=== PATIENT | male | born 1985 | race Hispanic/Latino ===

== ENCOUNTER 2024-07-28 02:37 | Emergency (ER) | payer SELFPAY ==
[~2024-07-28] VITALS: Ht 167.6 cm; Wt 88.0 kg
[2024-07-28] MEDS: DIPH,PERTUSS(ACELL),TET VAC/PF 0.5 ML VIAL IM ONE (03:27)
[2024-07-28] MEDS: LIDOCAINE HCL 1% 20 ML VIAL INJ SCH (03:27)
[2024-07-28 03:39] VITALS: BP 126/79; PULSE 83; RESP 18; TEMP 98.5; O2SAT 98
[2024-07-28] MEDS: BACITRACIN 1 EACH PACKET TP ONE (04:24)
== END 2024-07-28 04:31 | disposition home or self-care (01) ==
LOC: EDBD 02:37 → EDH 02:37
DX: S61.217A Laceration without foreign body of left little finger without damage to nail, initial encounter (principal); W25.XXXA Contact with sharp glass, initial encounter; Y93.89 Activity, other specified; Y92.89 Other specified places as the place of occurrence of the external cause; Y99.8 Other external cause status
CPT/HCPCS: 12001; 90471; 90715